=== PATIENT | male | born 1965 | race African-American/Black ===

== ENCOUNTER → 2019-11-23 | Outpatient (CLI) | payer OTHER ==
[~2019-11-23] MED LIST: ADCIRCA20 MG; AMBIEN 10 MG TA10 MG; AMLODIPINE-BEN1 EAC1; ANDROGEL1.25 GM; LEXAPRO 10 MG T10 M2; LIPITOR20 MG; NORCO 5-325 TA1 EACH PO
== END ==
LOC: M.LAB 04:09
DX: E87.6 Hypokalemia (principal)

== ENCOUNTER → 2020-07-10 | Outpatient (CLI) | payer OTHER | LOC: M.RAD 12:22 | DX: R05 Cough (principal) ==

== ENCOUNTER 2021-05-30 12:33 | Emergency (ER) | payer OTHER ==
[~2021-05-30] VITALS: Ht 172.7 cm; Wt 91.6 kg
[2021-05-30] MEDS ORDERED: PREDNISONE 20 M20 MG PO (14:41)
[2021-05-30 14:53] VITALS: BP 143/94
== END 2021-05-30 14:54 | disposition home or self-care (01) ==
LOC: M.ERS 12:33
DX: R60.9 Edema, unspecified (principal); I10 Essential (primary) hypertension; E78.00 Pure hypercholesterolemia, unspecified; Z88.8 Allergy status to other drugs, medicaments and biological substances